=== PATIENT | female | born 1945 | race Hispanic/Latino ===

== ENCOUNTER 2016-12-31 09:53 | Emergency (ER) | payer OTHER, MEDICARE ==
[~2016-12-31] VITALS: Ht 139.7 cm; Wt 43.1 kg
--- NOTE | 2016-12-31 10:52 | ED SKIN/ALLERGY COMPLAINT ---
History of Present Illness General Chief Complaint: General Adult Stated Complaint: " i have alump on my neckxs 2months" Source: patient, family, old records Exam Limitations: no limitations Vital Signs & Intake/Output Vital Signs & Intake/Output Vital Signs Date Time Temp Pulse Resp B/P Pulse O2 O2 Flow FiO2 Ox Delivery Rate 12/31 1206 98.0 78 20 132/76 99 Room Air 12/31 1000 97.8 94 20 120/75 98 Room Air Allergies Coded Allergies: Penicillins (RASH 12/31/16) Triage Note: PT C/O "LUMP" ON COLLAR BONE X 1 MONTH. DENIES PAIN. SHE SAW HER PMD WHO TOLD HER IT WAS A BONE BUT SHE STATES "I DON'T TRUST THAT" Triage Nurses Notes Reviewed? yes Onset: 1-2 months Duration: week(s):, constant, continues in ED Timing: recent history Severity: mild Location: right lower neck Possible Factors: no cause identified No Modifying Factors: none LMP (ages 10-50): post menopausal : No Patient currently breastfeeds: No HPI: 1-2 months prior to admission patient complains of increasing painless lump on the right side of her lower neck. She denies fever chills nausea vomiting diarrhea abdominal pain chest pain shortness of breath dysuria rash bleeding. Past History Travel History Traveled to [place] past 21 day No Medical History Any Pertinent Medical History? see below for history Cardiovascular: hypertension Respiratory: asthma Endocrine: diabetes Surgical History Surgical History: non-contributory Psychosocial History What is your primary language Welsh Tobacco Use: Current Not Daily Daily Tobacco Use Amount/Type: =< 4 Cigarettes daily ETOH Use: denies use Illicit Drug Use: denies illicit drug use Family History Hx Contributory? No Review of Systems Review of Systems Constitutional: Reports: no symptoms. EENTM: Reports: no symptoms. Respiratory: Reports: no symptoms. Cardiovascular: Reports: no symptoms. GI: Reports: no symptoms. Genitourinary: Reports: no symptoms. Musculoskeletal: Reports: no symptoms. Skin: Reports: see HPI. Neurological/Psychological: Reports: no symptoms. Hematologic/Endocrine: Reports: no symptoms. Immunologic/Allergic: Reports: no symptoms. All Other Systems: Reviewed and Negative Physical Exam Physical Exam General Appearance: well developed/nourished, alert, awake, anxious, comfortable Head: atraumatic, normal appearance Eyes: Bilateral: normal appearance, PERRL, EOMI. Ears, Nose, Throat: normal pharynx, normal ENT inspection, hearing grossly normal Neck: supple, full range of motion, no midline tenderness, soft tissue mass 1.25 cm R lower ant neck Respiratory: normal breath sounds Cardiovascular: regular rate/rhythm Peripheral Pulses: 4+ carotid (R), 4+ carotid (L) Gastrointestinal: normal bowel sounds, soft, non-tender, no organomegaly Back: normal inspection, normal range of motion, no vertebral tenderness Extremities: normal inspection, normal capillary refill, normal range of motion, no edema Neurologic/Psych: awake, alert, oriented x 3, normal mood/affect Reflexes: 2+: bicep (R), bicep (L). Skin: intact, normal color Skin Problem Location: neck Skin Problem Character: swelling Lymphatic: no anterior cervical mechelle Progress Differential Diagnosis: abscess/cellulitis Plan of Care: Orders Procedure Date/time Status US-SOFT TISSUES OF HEAD & NECK 12/31 1010 Active Diagnostic Imaging: Viewed by Me: Ultrasound. Discussed w/RAD: Ultrasound. Radiology Impression: Ill-defined heterogeneous avascular mass correlates to the area of palpable concern interposed between the jugular notch of the manubrium and the right clavicular head. On physical exam, the mass is quite firm and nontender. The finding is nonspecific, however I suspect this to be related to the musculoskeletal structures in this region such as the first costal cartilage. The asymmetry between right and left in combination with growth over the last 4 months is concerning for an underlying neoplastic process. Further evaluation with MRI is recommended. Departure Departure Time of Disposition: 1211 Disposition: HOME OR SELF CARE Condition: Stable Clinical Impression Primary Impression: Abnormality of soft tissue on examination Referrals: ASAEL PETERS,IRA Street (PCP/Family) ROYER PETERS,NELI Fraser Call for surgical follow up Departure Forms: Customer Survey General Discharge Information
--- NOTE | 2016-12-31 11:51 | ULTRASOUND REPORT ---
EXAMINATION: US THYROID CLINICAL INFORMATION: Palpable lump of the right lower neck at the level of the superior manubrium/right clavicular head. The patient reports the lump to have developed over the last 4 months. COMPARISON: None TECHNIQUE: Linear transducer grayscale and color Doppler examination with attention to the region of concern in the lower right neck as indicated by the patient. FINDINGS: In the area of concern of the right anterior lower neck lateral to the jugular notch at the level of the right clavicular head is an ill-defined heterogeneous avascular mass measuring approximately 1.6 x 1.9 x 1.4 cm. There is a similar appearing but smaller structure on the contralateral side, however there is marked asymmetry in the size. IMPRESSION: Ill-defined heterogeneous avascular mass correlates to the area of palpable concern interposed between the jugular notch of the manubrium and the right clavicular head. On physical exam, the mass is quite firm and nontender. The finding is nonspecific, however I suspect this to be related to the musculoskeletal structures in this region such as the first costal cartilage. The asymmetry between right and left in combination with growth over the last 4 months is concerning for an underlying neoplastic process. Further evaluation with MRI is recommended.
[2016-12-31 12:06] VITALS: BP 132/76
== END 2016-12-31 12:28 ==
LOC: ERH 09:53
DX: R22.1 Localized swelling, mass and lump, neck (principal)

== ENCOUNTER 2017-01-03 06:12 | Emergency (ER) | payer OTHER, MEDICARE ==
[2017-01-03] MEDS ORDERED: DICYCLOMINE HCL20 M1 PO (06:14)
[2017-01-03] MEDS ORDERED: PREDNISONE5 M2 PO (06:15)
[2017-01-03] MEDS ORDERED: AMLODIPINE BESY10 M1 PO (06:15)
[2017-01-03] MEDS ORDERED: STROVITE ONE C1 EACH PO (06:15)
[2017-01-03] MEDS ORDERED: METFORMIN HCL500 M2 PO (06:15)
[2017-01-03] MEDS ORDERED: NITROGLYCERIN0.4 M1 SL (06:16)
[2017-01-03 06:32] LABS: ABSOLUTE BASOPHIL COUNT 0 /CUMM (0.0-0.2); ABSOLUTE EOSINOPHIL COUNT 0.2 /CUMM (0.0-0.7); ABSOLUTE GRANULOCYTE CT 3.6 /CUMM (1.4-6.5); ABSOLUTE LYMPH COUNT 3.1 /CUMM (1.2-3.4); ABSOLUTE MONOCYTE COUNT 0.7 /CUMM (0.10-0.60); BASOPHIL % 0.4 % (0.0-2.0); EOSINOPHIL % 2.1 % (0-5); GRANULOCYTE % 47.8 % (42.2-75.2); HEMATOCRIT 37.9 % (37-47); MEAN CORPUSCULAR HGB 30.8 PG (27.0-31.0); MEAN CORPUSCULAR HGB CONC 32.6 G/DL (33.0-37.0); MEAN CORPUSCULAR VOLUME 94.3 FL (81.0-99.0); MEAN PLATELET VOLUME 7.3 FL (7.4-10.4); PLATELET COUNT 316 /CUMM (130-400); RBC DISTRIBUTION WIDTH 16.3 % (11.5-14.5); RED BLOOD CELL CT 4.02 /CUMM (4.20-5.40); WHITE BLOOD CELL COUNT 7.6 /CUMM (4.8-10.8)
[2017-01-03 06:39] LABS: PT 10.8 SEC (9.4-12.5)
--- NOTE | 2017-01-03 07:12 | ED CARDIAC/CP/PALPITATIONS ---
History of Present Illness General Chief Complaint: Chest Pain Stated Complaint: BIBA CP Source: patient, family, old records Exam Limitations: no limitations Vital Signs & Intake/Output Vital Signs & Intake/Output Vital Signs Date Time Temp Pulse Resp B/P B/P Pulse O2 O2 Flow FiO2 Mean Ox Delivery Rate 01/03 1024 85 18 114/78 98 Room Air 01/03 0618 97.1 89 18 107/77 99 Room Air Allergies Coded Allergies: Penicillins (RASH 01/03/17) Reconcile Medications Amlodipine Besylate 10 MG TABLET 1 TAB PO DAILY HTN (Reported) Dicyclomine HCl 20 MG TABLET 1 TAB PO (Reported) Metformin HCl (Metformin HCl ER) 500 MG TAB.ER.24 1 TAB PO DAILY DM (Reported ) Mv,Min #10/FA/D3/Alip Acid/Lut (Strovite One Caplet) 1 MG-1,000 UNIT-15 MG-5 MG TABLET 1 TAB PO DAILY SUPPLEMENT (Reported) Nitroglycerin 0.4 MG TAB.SUBL 1 TAB SL AD (Reported) 1st sign of attack; may repeat every 5 minutes until relief; if pain persists after 3 tablets in 15 minutes, prompt medical att Nitroglycerin (Nitrostat) 0.4 MG TAB.SUBL 1 TAB SL AD PRN CHEST PAIN 1st sign of attack; may repeat every 5 minutes until relief; if pain persists after 3 tablets in 15 minutes, prompt medical att Nitroglycerin (Nitrostat) 0.4 MG TAB.SUBL 1 TAB SL D CHEST PAIN Prednisone 5 MG TAB.DS.PK 1 TAB PO DAILY (Reported) Triage Note: TRIAGE: PATIENT TO ER FROM HOME REPORTS SUDDEN ONSET SHARP CP WOKE HER FROM SLEEP AT 0300. HX [place] X2. PATIENT REPORTS CURRENT PAIN 06/24. 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 REPORTS QUIT SMOKING 1 WEEK AGO. PREHOSP IV EST #18 LEFT AC. REPORTS "RAN OUT OF NITRO SO DIDN'T TAKE ANY." GIVEN NITRO X1 AND 4 BABY ASPIRINS IN FIELD W/ NO RELIEF. Triage Nurses Notes Reviewed? yes Onset: Abrupt Duration: hour(s): (2) Timing: multiple episodes today Location: central Activities at Onset: sleep Nitro Today/Relief: no nitro taken today Aspirin Today: no aspirin today HPI: 71 year old female with history of CAD, HTN, high cholesterol who presents via EMS from home for chief complaint of substernal chest pain which woke her up from sleep. Reports 10/10 pain. She was given aspirin and nitroglycerin with some relief. She states she ran out of her nitro 3 weeks ago which she takes once every morning. No cough, fever, sob, chills. Associated left arm pain and heaviness. Now arm pain is resolved. Past History Travel History Traveled to [place] past 21 day No Medical History Any Pertinent Medical History? 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 No Review of Systems Review of Systems Constitutional: Denies: chills, fever. EENTM: Reports: no symptoms. Respiratory: Denies: hemoptysis, short of breath. Cardiovascular: Reports: chest pain. Denies: palpitations, peripheral edema. GI: Reports: no symptoms. Genitourinary: Denies: discharge, dysuria, frequency. Musculoskeletal: Reports: no symptoms. Skin: Reports: no symptoms. Neurological/Psychological: Reports: no symptoms. Hematologic/Endocrine: Denies: bruising, bleeding, polyuria, polydipsia. Immunologic/Allergic: Denies: splenectomy. All Other Systems: Reviewed and Negative Physical Exam Physical Exam General Appearance: alert, awake, anxious, mild distress, thin Head: atraumatic, normal appearance Eyes: Bilateral: normal appearance, PERRL, EOMI. Ears, Nose, Throat: normal pharynx, normal ENT inspection, hearing grossly normal Neck: normal inspection, supple, JVD Respiratory: normal breath sounds, chest non-tender, no respiratory distress Cardiovascular: regular rate/rhythm Peripheral Pulses: 2+ radial (R), 2+ radial (L) Gastrointestinal: normal bowel sounds, soft, non-tender Extremities: normal inspection, normal capillary refill, normal range of motion Neurologic/Psych: no motor/sensory deficits, alert, oriented x 3 Skin: intact, normal color, warm/dry Core Measures ACS in differential dx? Yes ASA ordered for poss ACS? PRIOR TO ARRIVAL Severe Sepsis Present: No Septic Shock Present: No Progress Differential Diagnosis: AMI, aortic dissection, costochondritis, musculoskeletal pain, myocarditis, pericarditis, pneumonia, pneumothorax, pulmonary embolism, unstable angina Plan of Care: Orders Procedure Date/time Status Consistent Carbohydrate 1 01/03 B Active TROPONIN LEVEL 01/03 1020 Complete EKG 01/03 1020 Active Add-on Test (ER Only) 01/03 0705 Active PROTHROMBIN TIME 01/03 06 Complete COMPREHENSIVE METABOLIC PANEL 01/03 06 Complete CBC WITHOUT DIFFERENTIAL 01/03 625 Complete TROPONIN LEVEL 01/03 06 Complete EKG 01/03 0618 Active Laboratory Tests 01/03/17 1022: Troponin I < 0.01 01/03/17 06: Anion Gap 14, Estimated GFR > 60, BUN/Creatinine Ratio 21.4, Glucose 92, Calcium 9.3, Total Bilirubin 0.4, AST 33, ALT 31, Alkaline Phosphatase 138 H, Troponin I < 0.01, Total Protein 6.5, Albumin 3.7, Globulin 2.8, Albumin/Globulin Ratio 1.3, PT 10.8, INR 1.03, CBC w Diff NO MAN DIFF REQ, RBC 4.02 L, MCV 94.3, MCH 30.8, RDW 16.3 H, MPV 7.3 L, Gran % 47.8, Lymphocytes % 40.7, Monocytes % 9.0, Eosinophils % 2.1, Basophils % 0.4, Absolute Granulocytes 3.6, Absolute Lymphocytes 3.1, Absolute Monocytes 0.7 H, Absolute Eosinophils 0.2, Absolute Basophils 0, PUBS MCHC 32.6 L EKG, TELE MONITOR, LABS. CXR ORDERED. ASPIRIN AND NITROGLYCERIN GIVEN IN THE FIELD. INITIAL TROPONIN NEGATIVE. PAIN FREE AFTER NITRO IN THE FIELD. WILL STAY FOR REPEAT TROPONIN/EKG. REPEAT TROPONIN X 2 NEGATIVE. NO RECURRENT SYMPTOMS IN THE ED. PRESCRIPTION FOR NITROGLYCERIN GIVEN. WILL FOLLOW UP WITH SENIOR UI UX DESIGNER AT [facility]. (PABLO PETERS,ONESIMO) Diagnostic Imaging: Viewed by Me: Radiology Read. Discussed w/RAD: Radiology Read. CXR Impression: PATIENT: NICO SIMMONS PRESENT AGE: 71 PATIENT ACCOUNT NO: [id number] : 43 LOCATION: [facility] ORDERING PHYSICIAN: NOE TIERNEY MD SERVICE DATE: 01/03/17 EXAM TYPE: RAD - XRY-PORTABLE CHEST XRAY EXAMINATION: XR PORTABLE CHEST CLINICAL INFORMATION: Chest pain. COMPARISON: No relevant prior imaging available. TECHNIQUE: Portable AP view of the chest was obtained. FINDINGS: Cardiac leads overlie the chest. There is no focal consolidative disease, pleural effusion, or pneumothorax. The cardiac silhouette and upper mediastinal contours are normal. 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 Visualized soft tissues are unremarkable. IMPRESSION: Unremarkable chest radiograph. No consolidative disease or effusion. DICTATED BY: LETTY EAST MD DATE/TIME DICTATED:01/03/17707 NET APPLICATION ARCHITECT:NOLAN DATE/ TIME TRANSCRIBED:01/03/17707 CONFIDENTIAL, DO NOT COPY WITHOUT APPROPRIATE AUTHORIZATION. <Electronically signed in Other Vendor System> SIGNED BY: LETTY EAST MD 01/03/17 07 Initial ED EKG: NSR, LAD Repeat EKG: changed Rhythm Strip: normal sinus rhythm Departure Departure Time of Disposition: 1127 Disposition: HOME OR SELF CARE Condition: Stable Clinical Impression Primary Impression: Unstable angina Referrals: ASAEL PETERS,IRA Street (PCP/Family) Additional Instructions: TAKE THE NITRO DIRECTED AND FOLLOW UP WITH YOUR SENIOR UI UX DESIGNER IN THE OFFICE. RETURN NEEDED. Departure Forms: Customer Survey General Discharge Information Prescriptions: Current Visit Scripts Nitroglycerin (Nitrostat) 1 TAB SL AD PRN CHEST PAIN #40 TAB 1st sign of attack; may repeat every 5 minutes until relief; if pain persists after 3 tablets in 15 minutes, prompt medical att Nitroglycerin (Nitrostat) 1 TAB SL D #30 TAB Critical Care Note Critical Care Note Critical Care Time: non-applicable
[2017-01-03] MEDS ORDERED: NITROSTAT0.4 M1 SL ×2 (11:31)
[2017-01-03 11:46] VITALS: BP 110/74
== END 2017-01-03 11:47 ==
LOC: ERH 06:12
PROVIDERS: Emergency Medicine
DX: I20.0 Unstable angina (principal); R07.89 Other chest pain
CPT/HCPCS: 93005; 93010

== ENCOUNTER 2017-03-13 23:57 | Inpatient (IN) | payer OTHER, MEDICARE ==
[~2017-03-13] VITALS: Ht 139.7 cm; Wt 38.6 kg
[~2017-03-13 23:57] MED LIST: AMLODIPINE BESY10 M1 PO; DICYCLOMINE HCL20 M1 PO; METFORMIN HCL500 M2 PO; NITROGLYCERIN0.4 M1 SL; NITROSTAT0.4 M1 SL; PREDNISONE5 M2 PO; STROVITE ONE C1 EACH PO
--- NOTE | 2017-03-14 00:05 | NUR ---
PT BIBA FROM HOME WITH C/C OF LEFT CHEST PAIN 9/ WHICH STARTED AT AROUND 1800 YESTERDAY GETTING WORSE. REPORTS LEFT C/P CONSTANT RADIATING TO THE CENTER. PT HAS HISTORY [place] X 2 WITH STENTS, DM, HTN. C/O DIFFICULTY BREATHING. NO DIAPHORESIS. FINGER STICK ON ROUTE WAS 130. ASPIRIN 324MG PO GIVEN ON ROUTE. PT REPORTED TAKEN 1 NITRO SL AROUND 1800 WHICH WAS INEFFECTIVE. 12 LEAD EKG ON ROUTE WAS SINUS RHYTHM. AWAITING EVAL.
--- NOTE | 2017-03-14 00:18 | ED CARDIAC/CP/PALPITATIONS ---
History of Present Illness General Chief Complaint: Chest Pain Stated Complaint: BIBA, CHEST PAIN Source: patient, family, old records, EMS Exam Limitations: no limitations Vital Signs & Intake/Output Vital Signs & Intake/Output Vital Signs Date Time Temp Pulse Resp B/P B/P Pulse O2 O2 Flow FiO2 Mean Ox Delivery Rate 03/14 0124 70 18 126/71 97 Room Air 03/14 0110 97.0 75 18 114/76 97 Room Air 03/14 0051 78 18 105/58 96 Room Air 03/14 0042 70 18 111/70 03/14 0038 76 18 111/70 97 Room Air 03/14 0033 85 18 118/70 95 Room Air 03/14 0027 105 18 107/67 95 Room Air 03/14 0003 96.6 88 18 152/78 98 Room Air Allergies Coded Allergies: Penicillins (RASH 01/03/17) Reconcile Medications Amlodipine Besylate 10 MG TABLET 1 TAB PO DAILY HTN (Reported) Dicyclomine HCl 20 MG TABLET 1 TAB PO (Reported) Metformin HCl (Metformin HCl ER) 500 MG TAB.ER.24 1 TAB PO DAILY DM (Reported ) Mv,Min #10/FA/D3/Alip Acid/Lut (Strovite One Caplet) 1 MG-1,000 UNIT-15 MG-5 MG TABLET 1 TAB PO DAILY SUPPLEMENT (Reported) Nitroglycerin 0.4 MG TAB.SUBL 1 TAB SL AD (Reported) 1st sign of attack; may repeat every 5 minutes until relief; if pain persists after 3 tablets in 15 minutes, prompt medical att Nitroglycerin (Nitrostat) 0.4 MG TAB.SUBL 1 TAB SL AD PRN CHEST PAIN 1st sign of attack; may repeat every 5 minutes until relief; if pain persists after 3 tablets in 15 minutes, prompt medical att Nitroglycerin (Nitrostat) 0.4 MG TAB.SUBL 1 TAB SL D CHEST PAIN Prednisone 5 MG TAB.DS.PK 1 TAB PO DAILY (Reported) Core Measure Meds Pre-Hospital aspirin Triage Note: see nurses notes Triage Nurses Notes Reviewed? yes Onset: Evening Duration: hour(s):, constant, continues in ED, getting worse Timing: recent history Quality/Severity: moderate, severe, sharp Location: substernal Radiation: no radiation Activities at Onset: rest Prior Chest Pain/Card Workup: angina, cardiac cath, echocardiography, heart attack Nitro Today/Relief: 0.4 mg x 1, 0.4 mg x 3, provided by ED, provided at home, no relief Aspirin Today: 325 mg x 1, provided by EMS Associated Symptoms: dizziness, shortness of breath, weakness LMP (ages 10-50): post menopausal : No Patient currently breastfeeds: No HPI: 6 hours prior to admission patient complains of constant left-sided sharp moderate to severe chest pain associated with dizziness shortness of breath. She took one nitroglycerin at the onset of pain but had no more. She denies fever chills vomiting diarrhea abdominal pain headache dysuria rash bleeding. Past History Travel History Traveled to [place] past 21 day No Medical History Any Pertinent Medical History? 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 No Review of Systems Review of Systems Constitutional: Reports: see HPI, malaise. EENTM: Reports: no symptoms. Respiratory: Reports: see HPI, short of breath. Cardiovascular: Reports: see HPI, chest pain. GI: Reports: no symptoms. Genitourinary: Reports: no symptoms. Musculoskeletal: Reports: no symptoms. Skin: Reports: no symptoms. Neurological/Psychological: Reports: no symptoms. Hematologic/Endocrine: Reports: no symptoms. Immunologic/Allergic: Reports: no symptoms. All Other Systems: Reviewed and Negative Physical Exam Physical Exam General Appearance: well developed/nourished, alert, awake, anxious, moderate distress Head: atraumatic, normal appearance Eyes: Bilateral: normal appearance, PERRL, EOMI. Ears, Nose, Throat: normal pharynx, normal ENT inspection Neck: normal inspection, supple, full range of motion, no midline tenderness Respiratory: normal breath sounds, chest non-tender, no respiratory distress, quiet respiration, lungs clear Cardiovascular: regular rate/rhythm, normal peripheral pulses, norml femoral pulses equa Peripheral Pulses: 4+ carotid (R), 4+ carotid (L), 2+ radial (R), 2+ radial (L) Gastrointestinal: normal bowel sounds, soft, non-tender, no organomegaly Back: normal inspection, normal range of motion, no vertebral tenderness Extremities: normal inspection, normal capillary refill, normal range of motion, no edema Neurologic/Psych: no motor/sensory deficits, awake, alert, oriented x 3, normal gait, 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 Skin: intact, normal color, warm/dry Lymphatic: no anterior cervical mechelle Core Measures ACS in differential dx? Yes ASA ordered for poss ACS? Yes-ordered Severe Sepsis Present: No Septic Shock Present: No Progress Differential Diagnosis: AMI, hyperkalemia, hypovolemia, pneumonia Plan of Care: Orders Procedure Date/time Status Patient Data 03/14 238 Active Admit to inpatient 03/14 234 Active Add-on Test (ER Only) 03/14 213 Active PARTIAL THROMBOPLASTIN TIME 03/14 213 Complete PROTHROMBIN TIME 03/14 021 Complete TROPONIN LEVEL 03/14 15 Complete MAGNESIUM 03/14 001 Complete COMPREHENSIVE METABOLIC PANEL 03/14 0015 Complete CBC WITHOUT DIFFERENTIAL 03/14 001 Complete B-TYPE NATRIURETIC PEP (BNP) 03/14 001 Complete EKG 03/14 0011 Active Current Medications Sig/Melani Start time Last Medication Dose Stop Time Status Admin Heparin Sodium 4,000 UNIT ONCE ONE 03/14 0145 CAN (Porcine) 03/14 0146 (Heparin Bolus) Heparin Sodium 25,000 UNIT Q24H 03/14 0145 AC (Porcine) (Heparin) Sodium Chloride 500 ML Laboratory Tests 03/14/17 0024: Anion Gap 10, Estimated GFR > 60, BUN/Creatinine Ratio 18.6, Glucose 93, Calcium 9.8, Magnesium 2.1, Total Bilirubin 0.4, AST 219 H, ALT 102 H, Alkaline Phosphatase 218 H, Troponin I < 0.01, [id number] Pept 53.8, Total Protein 6.5, Albumin 4.0, Globulin 2.5, Albumin/Globulin Ratio 1.6, PT 11.1, INR 1.06, APTT 37, CBC w Diff NO MAN DIFF REQ, RBC 4.23, MCV 91.6, MCH 30.4, RDW 16.6 H, MPV 7.5, Gran % 47.4, Lymphocytes % 43.0, Monocytes % 7.1, Eosinophils % 2.4, Basophils % 0.1, Absolute Granulocytes 2.8, Absolute Lymphocytes 2.5, Absolute Monocytes 0.4, Absolute Eosinophils 0.1, Absolute Basophils 0, PUBS MCHC 33.2 Diagnostic Imaging: Viewed by Me: Radiology Read. Discussed w/RAD: Radiology Read. CXR Impression: Cardiac leads overlie the chest. There is no focal consolidative disease, pleural effusion, or pneumothorax. The cardiac silhouette and upper mediastinal contours are normal. 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 There is severe degenerative arthrosis of the left shoulder with superior subluxation of the humeral head and severe degenerative narrowing of the acromiohumeral interval suggesting chronic changes of a rotator cuff injury. No acute osseous finding. Surgical clips within the right upper quadrant are noted. IMPRESSION: No consolidative disease or effusion. Initial ED EKG: normal axis, normal intervals, normal p-waves, normal QRS complex, normal sinus rhythm, nonspecific ST T wave chg Prior EKG: unchanged Rhythm Strip: normal sinus rhythm Comments: No relief from ASA lopressor nitrox3 morphine. IV nitro and heparin started Departure Departure Disposition: STILL A PATIENT Condition: Stable Clinical Impression Primary Impression: Unstable angina Referrals: ASAEL PETERS,IRA Street (PCP/Family) Departure Forms: Customer Survey General Discharge Information Admission Note Spoke With: MELANIE PETERS,CALI Mat[place] Documentation of Exam: Documentation of any treatments & extenuating circumstances including Concerns Regarding Discharge (functional status, medication knowledge or non-compliance, living conditions, etc.) that warrant an admission rather than observation: ICU monitoring IV nitroglycerin IV analgesia serial lab exam medication adjustment cardiology evaluation continuing care discharge planning. Critical Care Note Critical Care Note Critical Care Time: 30-74 min (45)
--- NOTE | 2017-03-14 00:20 | NUR ---
EKG DONE AND SHOWED TO MD. NITRO SL GIVEN ORDERED.
--- NOTE | 2017-03-14 00:30 | NUR ---
CHEST PAIN DOWN TO 8/10. MEDICATED WITH NITRO LS SECOND ORDERED.
[2017-03-14 00:33] LABS: ABSOLUTE BASOPHIL COUNT 0 /CUMM (0.0-0.2); ABSOLUTE EOSINOPHIL COUNT 0.1 /CUMM (0.0-0.7); ABSOLUTE GRANULOCYTE CT 2.8 /CUMM (1.4-6.5); ABSOLUTE LYMPH COUNT 2.5 /CUMM (1.2-3.4); ABSOLUTE MONOCYTE COUNT 0.4 /CUMM (0.10-0.60); BASOPHIL % 0.1 % (0.0-2.0); EOSINOPHIL % 2.4 % (0-5); GRANULOCYTE % 47.4 % (42.2-75.2); HEMATOCRIT 38.8 % (37-47); MEAN CORPUSCULAR HGB 30.4 PG (27.0-31.0); MEAN CORPUSCULAR HGB CONC 33.2 G/DL (33.0-37.0); MEAN CORPUSCULAR VOLUME 91.6 FL (81.0-99.0); MEAN PLATELET VOLUME 7.5 FL (7.4-10.4); PLATELET COUNT 268 /CUMM (130-400); RBC DISTRIBUTION WIDTH 16.6 % (11.5-14.5); RED BLOOD CELL CT 4.23 /CUMM (4.20-5.40); WHITE BLOOD CELL COUNT 5.9 /CUMM (4.8-10.8)
--- NOTE | 2017-03-14 00:42 | NUR ---
PT MEDICATED WITH LOPRESSOR PER EMAR. BP 111/70 AND HEART 70 ON MONITOR.
--- NOTE | 2017-03-14 00:48 | RADIOLOGY REPORT ---
EXAMINATION: XR PORTABLE CHEST CLINICAL INFORMATION: Chest pain. COMPARISON: Chest radiograph 01/03/2017. TECHNIQUE: Portable AP semiupright view of the chest was obtained. FINDINGS: Cardiac leads overlie the chest. There is no focal consolidative disease, pleural effusion, or pneumothorax. The cardiac silhouette and upper mediastinal contours are normal. 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 There is severe degenerative arthrosis of the left shoulder with superior subluxation of the humeral head and severe degenerative narrowing of the acromiohumeral interval suggesting chronic changes of a rotator cuff injury. No acute osseous finding. Surgical clips within the right upper quadrant are noted. IMPRESSION: No consolidative disease or effusion.
--- NOTE | 2017-03-14 01:00 | NUR ---
PT REPORTS CHEST PAIN COMES AND GOES. C/O PAIN 05/25. NITRO SL THIRD DOSE REFUSED. MEDICATED WITH MORPHINE IVP ORDERED. VITAL SIGNS STABLE PRIOR TO MED ADMINISTRATION.
--- NOTE | 2017-03-14 01:24 | NUR ---
PT STATES THAT CP IS BEGINNING TO SUBSIDE AFTER THE MORPHINE.
--- NOTE | 2017-03-14 01:36 | NUR ---
DR TIERNEY AT BEDSIDE FOR RE-EVAL.
--- NOTE | 2017-03-14 01:38 | NUR ---
PT'S DAUGHTER MICA CAN BE CONTACTED AT [phone].
--- NOTE | 2017-03-14 01:51 | NUR ---
PHARMACY CALLED FOR NITRO DRIP.
--- NOTE | 2017-03-14 02:10 | NUR ---
PT REPORTS CHEST PAIN COMES AND GOES LIKE PINS. C/O PAIN 8/10 AT THIS TIME. MEDICATED WITH MORPHINE IVP ORDERED. VITAL SIGNS STABLE.
[2017-03-14 02:31] LABS: PT 11.1 SEC (9.4-12.5); PTT 37 SEC (25-37)
--- NOTE | 2017-03-14 02:33 | NUR ---
TAKEN TO BATHROOM VIA WHEEL CHAIR TO VOID.
--- NOTE | 2017-03-14 02:47 | NUR ---
HEPARIN DRIP INITIATED PER EMAR. NITRO DRIP INITIATED PER EMAR. PAIN 8/10. WILL CONTINUE TO MONITOR.
--- NOTE | 2017-03-14 02:52 | NUR ---
PT STATES CP IS NOW 03/24. WILL CONTINUE TO MONITOR.
--- NOTE | 2017-03-14 02:57 | NUR ---
PT STATES PAIN REMAINS 03/24. VSS. WILL CONTINUE TO MONITOR.
--- NOTE | 2017-03-14 03:24 | NUR ---
PT STATES THAT CHEST PAIN IS INCREASING, NOW 06/24. NITRO DRIP INCREASED 5MCG PER PROTOCOL. VSS. WILL CONTINUE TO MONITOR.
--- NOTE | 2017-03-14 03:26 | History & Physical ---
EVARISTO PETERS,MANUEL 03/14/17 0317: General Information and [facility] MD Statement: I have seen and personally examined NICO SIMMONS and documented this H&P. The patient is a 71 year old F who presented with a patient stated chief complaint of [cp]. Source of Information: patient Exam Limitations: no limitations History of Present Illness: This is a 70-year-old female past medical history significant for NH 2 in 1992 and [address] and [address], asthma, hypertension, diabetes, who comes in for chief complaint of chest pain. Patient states that 6 hours prior to admission she felt left-sided moderate to severe chest pain. During interview, patient stated she had 10 out of 10 pain. She took one nitroglycerin tablet at home and stated that it helped her for about 20-30 minutes. However, the pain returned and she did not have any more nitroglycerin at home so she decided to come to ED. Patient states also took one Plavix tab at home and found no change in her symptoms. Patient endorses headache prior to coming to hospital, but denies any dizziness. She has been having more frequent falls recently. She has had 3 falls in the last month, despite using a cane. She states that prior to each fall she has dizziness but no loss of consciousness, seizure, loss of bladder/ bowel movement BRBPR, or melena. Patient follows with a female executive office manager in [place] on [facility]. She does not know any further details. Apparently, she was told to stop taking Plavix this September. She has had recent surgery on November 22 in her r.knee and on October 18 her right shoulder. She continues to smoke 1 cigarette a day. She has one pack per day history for 3 years. Patient denies any alcohol or drug abuse. Notably, patient has never been admitted to [facility] but she has been to our ED on 01/03/2017 she was seen here for unstable angina. Serial troponins were negative and she was discharged to follow-up with executive office manager. She usually follows up in [facility]. Allergies/Medications Allergies: Coded Allergies: Penicillins (RASH 01/03/17) Home Med list Amlodipine Besylate 10 MG TABLET 1 TAB PO DAILY HTN (Reported) Dicyclomine HCl 20 MG TABLET 1 TAB PO (Reported) Metformin HCl (Metformin HCl ER) 500 MG TAB.ER.24 1 TAB PO DAILY DM (Reported ) Mv,Min #10/FA/D3/Alip Acid/Lut (Strovite One Caplet) 1 MG-1,000 UNIT-15 MG-5 MG TABLET 1 TAB PO DAILY SUPPLEMENT (Reported) Nitroglycerin 0.4 MG TAB.SUBL 1 TAB SL AD (Reported) 1st sign of attack; may repeat every 5 minutes until relief; if pain persists after 3 tablets in 15 minutes, prompt medical att Nitroglycerin (Nitrostat) 0.4 MG TAB.SUBL 1 TAB SL AD PRN CHEST PAIN 1st sign of attack; may repeat every 5 minutes until relief; if pain persists after 3 tablets in 15 minutes, prompt medical att Nitroglycerin (Nitrostat) 0.4 MG TAB.SUBL 1 TAB SL D CHEST PAIN Prednisone 5 MG TAB.DS.PK 1 TAB PO DAILY (Reported) Compliance With Home Meds: UNKNOWN Past History Travel History Traveled to [place] past 21 day No Medical History Neurological: NONE EENT: NONE Cardiovascular: hypertension, NH X 2 Respiratory: asthma Gastrointestinal: NONE Hepatic: NONE Renal: NONE Musculoskeletal: NONE Psychiatric: NONE Endocrine: diabetes Blood Disorders: NONE Cancer(s): NONE VIDEO ENGINEER/Reproductive: NONE Surgical History Surgical History: non-contributory Past Family/Social History Psychosocial History ETOH Use: denies use Illicit Drug Use: denies illicit drug use Functional Ability ADLs Independent: dressing, eating, toileting, bathing. Ambulation: cane IADLs Independent: shopping, housework, finances, food prep, telephone, transportation , medication admin. Review of Systems Review of Systems Constitutional: Reports: see HPI. Exam & Diagnostic Data Last 24 Hrs of Vital Signs/I&O Vital Signs Date Time Temp Pulse Resp B/P B/P Pulse O2 O2 Flow FiO2 Mean Ox Delivery Rate 03/14 0415 72 105/64 97 Room Air 03/14 0359 96.5 71 18 107/57 98 Room Air 03/14 0334 77 106/64 97 Room Air 03/14 0324 74 108/61 97 Room Air 03/14 0319 70 112/61 98 Room Air 03/14 0254 65 18 118/65 98 Room Air 03/14 0124 70 18 126/71 97 Room Air 03/14 0110 97.0 75 18 114/76 97 Room Air 03/14 0051 78 18 105/58 96 Room Air 03/14 0042 70 18 111/70 06/30 0038 76 18 111/70 97 Room Air 03/14 0033 85 18 118/70 95 Room Air 03/14 0027 105 18 107/67 95 Room Air 03/14 0003 96.6 88 18 152/78 98 Room Air Intake & Output 03/14 0800 03/14 0000 03/13 1600 Intake Total Output Total Balance Patient 40.823 kg Weight Weight Reported by Patient Measurement Method Physical Exam General Appearance Alert, Oriented X3, Cooperative, No Acute Distress Skin No Rashes, No Breakdown HEENT Atraumatic, PERRLA, EOMI Cardiovascular Regular Rate, Normal S1, Normal S2, No Murmurs Lungs Normal Air Movement Abdomen Soft, No Tenderness, scar on RUQ Extremities RLE slightly more swollen the LLE from knee down. R. knee with bandage around knee. Knee with prosthesis and visible scar. Last 24 Hrs of Labs/Joseph: Laboratory Tests 03/14/17 0024: Anion Gap 10, Estimated GFR > 60, BUN/Creatinine Ratio 18.6, Glucose 93, Calcium 9.8, Magnesium 2.1, Total Bilirubin 0.4, AST 219 H, ALT 102 H, Alkaline Phosphatase 218 H, Troponin I < 0.01, Hrd-B-Xaqfsdngith Pept 53.8, Total Protein 6.5, Albumin 4.0, Globulin 2.5, Albumin/Globulin Ratio 1.6, PT 11.1, INR 1.06, APTT 37, CBC w Diff NO MAN DIFF REQ, RBC 4.23, MCV 91.6, MCH 30.4, RDW 16.6 H, MPV 7.5, Gran % 47.4, Lymphocytes % 43.0, Monocytes % 7.1, Eosinophils % 2.4, Basophils % 0.1, Absolute Granulocytes 2.8, Absolute Lymphocytes 2.5, Absolute Monocytes 0.4, Absolute Eosinophils 0.1, Absolute Basophils 0, PUBS MCHC 33.2 Assessment/Plan Assessment: This is a 71-year-old female past medical history significant for NH 2 status post stent, asthma, hypertension, diabetes, who comes in for chief complaint of unremitting chest pain. Patient found some relief with one nitroglycerin but chest pain quickly returned within 20 minutes. Given her significant cardiac history, comorbidities including hypertension and diabetes, smoking history, there is concern for acute coronary event in this patient. BRADLEY score of 3. In ED, patient was started on nitroglycerin drip and IV heparin. ED workup shows: Vitals: 96.6, 88, 18, 152/78, 98. CBC: White count 5.9, hemoglobin 12.9, hematocrit 30.8, platelet 260. BEP 142, 3.5, 104, 27, 13, 0.7 VASC to 19, ALT 102, alkaline phosphatase 218. Troponin 1 negative. EKG: Normal sinus rhythm with heart rate of 84. QTc 473. No appreciable ST or T-wave changes from previous EKG Chest x-ray shows no evidence of pna or vol overload. PLAN Unstable angina: Patient is currently having 10 out of 10 chest pressure at rest. The pain is amerliorated with nitroglycerin. Given patient's significant cardiac history but lack of EKG and troponin changes we will treat her as unstable angina. She got three nitro and morphine but pain returned so she was started on Nitro drip. * Continue heparin drip * Serial troponins and EKG * Continue nitroglycerin drip * Patient allergy to aspirin, will hold at this time * Patient took one Plavix today * NC O2 for sats greater than 92% * Monitor W/ telemetry * Obtain records from her executive office manager * Consider Statin on discharge after evaluating her elevated LFTs Transaminitis: AST 219, ALT 102, alkaline phosphatase 218during this visit. Previous LFTs within normal limits patient has a nonfocal abdominal exam. Unsure of etiology. She has remote hx of cholecystectomy * Right upper quadrant ultrasound * Liver function tests to be added to a.m. workup Diabetes: Chronic and stable * Hold metformin 500 * Regular insulin sliding scale * Fingerstick Hypertension: On admission patient's blood pressure 150/78. In hospital, she is getting IV nitroglycerin. * If she continues to be hypertensive, consider cardioselective beta wes as it is a first line in ACS. * She takes amlodipine 10 mg at home daily As Ranked By This Provider Problem List: 1. Unstable angina Core Measures/Miscellaneous Acute Coronary Syndrome ACS Diagnosis: Yes Comment ECHO UNKNOWN, ASA ALLERGY Cerebrovascular Accident CVA/TIA Diagnosis: No Congestive Heart Failure CHF Diagnosis: No VTE (View Protocol) VTE Risk Factors: [facility] illness [facility] prophylaxis d/t: No contraindications No VTE Pharm Prophylaxis d/t: No contraindications VTE Diagnosis: No VTE Type: NONE VTE Confirmed by (Test): NONE Sepsis (View Protocol) Severe Sepsis Present: No Septic Shock Septic Shock Present: No Miscellaneous Documentation Attending Case Discussed With: MELANIE PETERS,CALI Matute Primary Care Physician: IRA VYAS MD Patient sees these Specialists UNKNOWN Level of Patient Care: Critical Care (CRI) Consults Needed: Consulting Specialty: Cardiology JANINEMEFEMI 03/14/17 0547: Resident Review Statement Resident Statement: discussed with hospitality internship, agreed with hospitality internship, discussed with family Other Findings: Patient is 71 years old with PMH of DM, HTN, NH x 2 (1992 s/p stent insertion, and 2015) asthma came with chief complain of chest pain. Patient states that her chest pain started around 6.30 pm in the evening, she took a sublingual nitroglycerine and the pain went away for sometime but came right back. Patient states the pain was over her precordal region, 10/10 in intensity and pressure like. She said she has had chest pain in the past but never this bad. Of note, patient also took one 40 mg pill of plavix at home, which she was recently discontinued on in by her executive office manager at [facility] (patient can't recall the name). Patient reported that her chest pain was accompanied by a brief episode of lightheadedness and also Shortness of breath. Patient also reports that she has been having falls recently. She said her last fall was yesterday when her right knee gave out and she feel on the floor. Patient reports that she did not loose her consciousness during the fall. She lives with her daughter who came to see her immediatly. Patient does admit to feeling dizzy before her fall. She added that she has fallen once more in the past week and another time prior to that. She has not been worked up for her falls but things that it is possible due to her right knee which is healing since right knee arthroplasty in november 2016. Labs and Vitals as above. EKG: NSR, heart rate of 84. QTc 473. No appreciable ST or T-wave changes from previous EKG CXR- Clear Assessment and Plan In ER, Dr. Otero spoke with Dr. Navarro and patient was started on Heprin drip. Due to the reccurent nature of her CP that goes away with nitroglycerine, she was started on nitroglycerine drip. Will will admit her to ICU for closer monitoring. Serial troponins and EKG to r/o ACS Will obtain echocardiogram to access left ventricular function Blood pressure boderline on nitroglycerine drip, will hold her antihypertensives for now untill pressure improves. If the second set of troponins/EKG is negative, will stop nitroglycerine drip Case discussed with dr. Navarro Patient has elevated LFTs, etiology unknown, she had a cholecystectomy in 1985. Currently she does not have any abdominal pain, will get usg right upper quadrant to evalute liver morphology. Novolog SS, serial accu checks DVT ppx Heprin drip Patient is full code. CALI NAVARRO MD 03/14/17 0932: Attending MD Review Statement Attending Statement Attending MD Statement: examined this patient, discuss w/resident/PA/CERTIFIED OPHTHALMIC SURGICAL ASSISTANT, agreed w/resident/PA/CERTIFIED OPHTHALMIC SURGICAL ASSISTANT, discussed with family, reviewed EMR data (avail), discussed with nursing, discussed with case mgmt, reviewed images, amended to note Attending Assessment/Plan: 71 y-o-h-f w/ hx of long-standing tobacco use, asthma, HTN, HLD, DM, & CAD (s/p NH's x 2: 06/18/2007 s/p coronary stent to LAD and 01/03/2014 w/o need for PCI) who presented last night w/ c/o CP that began ~6.30 pm (03/13/2017) while she was watching TV, w/o relief following sl NTG 0.4 mg X1 taken several hours into the discomfort, clopidogrel taken an hour after that, or the 3 ASA 81 MG given en route to the ED. She recalls the pain radiating to her axillary region and then back up into her breast area and is being w/ associated shortness of breath, nausea, and lightheadedness. The pain was described as a "severe" (10/ 10), precordial, "pressure". She recalls being hospitalized in September 2016 for similar discomfort in [place] and being seen at that time by her attending executive office manager (Lizett Luque M.D.) and having a negative stress test. She additionally admitted to recent recurrent falls that have not been associated with any loss of consciousness, although she did admit to some dizziness prior to her fall last night that occurred after her right knee gave out. She is status post right knee arthroplasty in 11/22/2016. On physical examination she is a well-developed elderly female in no acute distress with nasal oxygen in place. Vital signs: See above. HEENT: Normocephalic, atraumatic, EOMI, moist mucous membranes. Neck: No JVD, no bruits. Lungs: Decreased breath sounds bilaterally and otherwise clear. Heart: S1, S2 with no murmur, gallop, rub appreciated. PMI fifth ICS at MCL. Abdomen: Soft, nontender, positive bowel sounds. Extremities: No edema. Studies: ECG (03/14/2017): Sinus rhythm, leftward axis, consider old IMI, abnormal precordial R wave progression consistent with old AMI. Minor changes when compared to previous tracing (01/03/2017). Impression: Prolonged episode of chest discomfort and this elderly female with a known history of coronary artery disease, as well as, risk equivalent and multiple risk factors for the same who fortunately has ruled out for any myocardial necrosis by her first 2 sets of cardiac enzymes with the third set pending. Fortunately, she is now chest discomfort free and had no acute electrocardiographic abnormalities on her initial electrocardiogram. Recommendations: * Transfer out of ICU to telemetry after third set of cardiac enzymes, if they remain negative. * Repeat ECG now. * Echocardiogram to assess for segmental wall motion abnormalities. * Can discontinue IV nitroglycerin. * Can discontinue IV heparin if third set of troponins is negative. * Alert Lizett Luque M.D. (her executive office manager), to her admission here and schedule outpatient follow-up. * Continue her beta wse and try and determine from her executive office manager why she is not on any antiplatelet therapy or ARACELI inhibitor/angiotensin receptor wes therapy. Suspect she is not on statin therapy secondary to her elevated LFTs, but this is not certain. * Evaluate abnormal LFTs and hold off on statin therapy. * DVT prophylaxis. Further recommendations will follow, Thank you.
--- NOTE | 2017-03-14 03:29 | NUR ---
HOUSESTAFF AT BEDSIDE FOR EVAL.
--- NOTE | 2017-03-14 03:33 | NUR ---
MORPHINE 2MG IVP ADMINISTERED FOR LEFT CHEST PAIN 10/10. VITAL SIGNS STABLE. HOUSE STAFF AT BEDSIDE EVALUATING THE PT.
--- NOTE | 2017-03-14 03:34 | NUR ---
PT STATES THAT CHEST PAIN REMAINS 10/10. NITRO DRIP INCREASED BY 5MCG PER PROTOCOL. BP 106/64, HEART RATE 77, O2 SAT 97% RA.
--- NOTE | 2017-03-14 03:40 | NUR ---
HOUSESTAFF REMAINS AT BEDSIDE.
--- NOTE | 2017-03-14 03:59 | NUR ---
PT RESTING COMFORTABLY. PT STATES PAIN IS NOW 9/10. BP 107/57, HEART RATE 71.
--- NOTE | 2017-03-14 04:15 | NUR ---
PT STATES PAIN IS DECREASING, NOW 03/24. PT CONTINUES TO REST COMFORTABLY ON STRETCHER.
--- NOTE | 2017-03-14 04:29 | NUR ---
PT CONTINUES TO COMPLAIN OF 7/10 CP. NITRO DRIP INCREASED BY 5MCG. BP 110/66, HR 80.
--- NOTE | 2017-03-14 04:48 | NUR ---
PT SOUNDLY SLEEPING. PT AWAKENED FROM SLEEP. PT STATES PAIN IS 6/10.
--- NOTE | 2017-03-14 05:03 | NUR ---
PT BECOMING AGITATED WITH FREQUENT MONITORING OF PAIN. PT INFORMED THAT WE ARE CLOSELY MONITORING HER DUE TO HER SYMPTOMS AND MEDICATIONS. PT STATES CHEST PAIN IS NOW 5/10. BP 103/59. HEART RATE 73.
--- NOTE | 2017-03-14 05:09 | NUR ---
PT'S ASSIGNMENT 106
--- NOTE | 2017-03-14 05:15 | NUR ---
REPORT GIVEN TO ALLAN LINDSAY ON ICU. ALLAN LINDSAY WILL CALL WHEN IT IS OKAY TO BRING PT TO THE FLOOR.
--- NOTE | 2017-03-14 05:21 | NUR ---
PT STATES PAIN IS 11/22. BP 105/62. HR 65. NITRO DRIP CURRENTLY RUNNING AT 25MCG.
--- NOTE | 2017-03-14 05:31 | NUR ---
PER RN PERITONEAL DIALYSIS ANGÉLICA, PT CAN BR BROUGHT UP TO THE FLOOR NOW. PT STATES PAIN IS /10. BP 104/61. HR 75.
--- NOTE | 2017-03-14 05:34 | NUR ---
NICO SIMMONS Nurse Note by: BREEZY MARIN I agree with the DOCUMENTATION SPEC findings/evaluation of this patient's condition. Entered by: BREEZY MARIN Date: 03/14/17 Time: 0535
--- NOTE | 2017-03-14 05:43 | NUR ---
BLOOD DRAWN AND SENT TO LAB. SST.
[2017-03-14 06:00] VITALS: BP 104/68
--- NOTE | 2017-03-14 07:28 | Cons- CRCU ---
General Information and HPI Allergies/Medications Allergies: Coded Allergies: Penicillins (RASH 01/03/17) Home Med List: Amlodipine Besylate 10 MG TABLET 1 TAB PO DAILY HTN (Reported) Dicyclomine HCl 20 MG TABLET 1 TAB PO (Reported) Metformin HCl (Metformin HCl ER) 500 MG TAB.ER.24 1 TAB PO DAILY DM (Reported ) Mv,Min #10/FA/D3/Alip Acid/Lut (Strovite One Caplet) 1 MG-1,000 UNIT-15 MG-5 MG TABLET 1 TAB PO DAILY SUPPLEMENT (Reported) Nitroglycerin 0.4 MG TAB.SUBL 1 TAB SL AD (Reported) 1st sign of attack; may repeat every 5 minutes until relief; if pain persists after 3 tablets in 15 minutes, prompt medical att Nitroglycerin (Nitrostat) 0.4 MG TAB.SUBL 1 TAB SL AD PRN CHEST PAIN 1st sign of attack; may repeat every 5 minutes until relief; if pain persists after 3 tablets in 15 minutes, prompt medical att Nitroglycerin (Nitrostat) 0.4 MG TAB.SUBL 1 TAB SL D CHEST PAIN Prednisone 5 MG TAB.DS.PK 1 TAB PO DAILY (Reported) Past History Travel History Traveled to [place] past 21 day No Medical History Blood Transfusion Hx: No Neurological: NONE EENT: CATARACT SX Cardiovascular: hypertension, NE X 2 Respiratory: asthma Gastrointestinal: NONE Hepatic: NONE Renal: NONE Musculoskeletal: NONE Psychiatric: NONE Endocrine: diabetes Blood Disorders: NONE Cancer(s): NONE 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 Home Smoking Status: Current Everyday Smoker ETOH Use: denies use Illicit Drug Use: denies illicit drug use Functional Ability ADLs Independent: dressing, eating, toileting, bathing. Ambulation: cane IADLs Independent: shopping, housework, finances, food prep, telephone, transportation , medication admin. Assessment/Plan Consult Acknowledgment - Thank you for your consult request.
--- NOTE | 2017-03-14 07:42 | NUR ---
@0600 PT ARRIVED TO FLOOR FROM ER, AWAKE AND ALERT MOVING ALL EXTREMETIES. HR SR ON MONITOR, SBP 100'S, PT ON NITROGLYCERIN DRIP @25MGC/MIN=15ML/HR C/O 2/10 CHEST PAIN, BUT BY END OF INTERVIEW PT COMPLAINING OF NO PAIN. HEPARIN DRIP INFUSING AT 8ML/HR+9.8 UNITS/KG/HR. SKIN INTACT NO EDEMA. ADMISSION INTERVIEW DONE, CALL HARVEY INSTRUCTIONS GIVEN PT VERBALIZED UNDERSTANDING.
[2017-03-14 08:00] VITALS: BP 120/62
[2017-03-14 09:52] LABS: ABSOLUTE BASOPHIL COUNT 0 /CUMM (0.0-0.2); ABSOLUTE EOSINOPHIL COUNT 0.1 /CUMM (0.0-0.7); ABSOLUTE GRANULOCYTE CT 1.8 /CUMM (1.4-6.5); ABSOLUTE LYMPH COUNT 2.3 /CUMM (1.2-3.4); ABSOLUTE MONOCYTE COUNT 0.3 /CUMM (0.10-0.60); BASOPHIL % 0.2 % (0.0-2.0); EOSINOPHIL % 2.8 % (0-5); GRANULOCYTE % 39.1 % (42.2-75.2); HEMATOCRIT 35.9 % (37-47); MEAN CORPUSCULAR HGB 30.8 PG (27.0-31.0); MEAN CORPUSCULAR HGB CONC 33.5 G/DL (33.0-37.0); MEAN CORPUSCULAR VOLUME 92.1 FL (81.0-99.0); MEAN PLATELET VOLUME 7.6 FL (7.4-10.4); PLATELET COUNT 259 /CUMM (130-400); RBC DISTRIBUTION WIDTH 16.5 % (11.5-14.5); WHITE BLOOD CELL COUNT 4.7 /CUMM (4.8-10.8)
--- NOTE | 2017-03-14 10:28 | PN- Housestaff ---
Assessment/Plan Consulting Request: Consulting Specialty: Cardiology
[2017-03-14 10:31] LABS: PT 11.7 SEC (9.4-12.5)
[2017-03-14 11:14] LABS: PTT 88 SEC (25-37)
--- NOTE | 2017-03-14 11:21 | ECHOCARDIOGRAM REPORT ---
NICO SIMMONS Age: 71 : 1945 Gender: F Exam Date: 03/14/2017 07:42 Exam Location: [facility] Ht (in): 55 Wt (lb): 90 BSA: 1.26 BP: 104 / 68 Ordering Physician: FEMI MEHTA MD Referring Physician: FEMI MEHTA MD Technologist: Mike Winston [facility] Room Number: 106 Indications: Chest Pain Rhythm: Sinus Technical Quality: Fair FINDINGS Left Ventricle Normal size left ventricle. Borderline concentric left ventricular hypertrophy. Mildly hypokinetic septum. No other obvious regional wall motion abnormalities. Normal left ventricular ejection fraction visually estimated at 65%. Abnormal relaxation filling pattern of the left ventricle for age (stage 1 diastolic dysfunction). Right Ventricle Normal right ventricular size and function. Right Atrium Normal right atrial size. Left Atrium Normal left atrial size. Mitral Valve Structurally normal mitral valve. No mitral regurgitation. Aortic Valve Aortic valve not well visualized. Mild aortic sclerosis. No aortic valve stenosis or regurgitation. Tricuspid Valve Structurally normal tricuspid valve. Trace tricuspid regurgitation. Mild pulmonary hypertension. Right ventricular systolic pressure estimated to be elevated at 43 mmHg. Pulmonic Valve Pulmonic valve not well visualized. Trace pulmonic regurgitation. Pericardium No pericardial effusion. Great Vessels Normal size aortic root. Normal size inferior vena cava. CONCLUSIONS Derek Crisostomo M.D. (Electronically Signed) Final Date: 14 March 2017 11:20 MEASUREMENTS (Male / Female) Normal Values 2D ECHO LV Diastolic Diameter PLAX 3.6 cm 4.2 - 5.9 / 3.9 - 5.3 cm LV Systolic Diameter PLAX 2.3 cm 2.1 - 4.0 cm LV Fractional Shortening PLAX 36.1 % 25 - 46 % LV Ejection Fraction 2D Teich 66.7 % IVS Diastolic Thickness 0.8 cm LVPW Diastolic Thickness 1.0 cm LV Relative Wall Thickness 0.5 LVOT Diameter 2.0 cm Aortic Root Diameter 2.4 cm LA Systolic Diameter LX 3.2 cm 3.0 - 4.0 / 2.7 - 3.8 cm Ascending Aorta Diameter 2.4 cm DOPPLER AV Peak Velocity 102.0 cm/s AV Peak Gradient 4.2 mmHg AV Mean Velocity 73.0 cm/s AV Mean Gradient 2.0 mmHg AV Velocity Time Integral 23.0 cm LVOT Peak Velocity 63.2 cm/s LVOT Peak Gradient 1.6 mmHg LVOT Mean Velocity 34.5 cm/s LVOT Mean Gradient 1.0 mmHg LVOT Velocity Time Integral 14.6 cm LVOT Stroke Volume 45.9 cm AV Area Cont Eq vti 2.0 cm AV Area Cont Eq pk 1.9 cm MV Peak Velocity 99.3 cm/s MV Peak Gradient 3.9 mmHg MV Mean Velocity 55.9 cm/s MV Mean Gradient 2.0 mmHg Mitral E Point Velocity 54.8 cm/s Mitral A Point Velocity 82.4 cm/s Mitral E to A Ratio 0.7 MV PHT Velocity 78.7 cm/s MV Deceleration Clare 254.0 cm/s MV Pressure Half Time 93.0 ms MV Area PHT 2.4 cm MV Deceleration Time 359.0 ms TR Peak Velocity 309.0 cm/s TR Peak Gradient 38.2 mmHg Right Atrial Pressure 5.0 mmHg Pulmonary Artery Systolic Pressu 43.2 mmHg Right Ventricular Systolic Press 43.2 mmHg PV Peak Velocity 88.9 cm/s PV Peak Gradient 3.2 mmHg PV Mean Velocity 63.1 cm/s PV Mean Gradient 1.5 mmHg PV Velocity Time Integral 20.2 cm LV E' Lateral Velocity 6.2 cm/s Mitral E to LV E' Lateral Ratio 8.8 LV E' Septal Velocity 6.5 cm/s Mitral E to LV E' Septal Ratio 8.4
--- NOTE | 2017-03-14 11:42 | ULTRASOUND REPORT ---
EXAMINATION: US ABDOMEN LIMITED CLINICAL INFORMATION: 71-year-old female with elevated LFTs.. COMPARISON: None TECHNIQUE: Real-time imaging of the right upper quadrant abdominal viscera. FINDINGS: PANCREAS: Pancreatic head and body are unremarkable. Pancreatic tail is obscured by overlying bowel gas. LIVER: The liver is normal in size and contour. It demonstrates diffusely increased echogenicity suggesting hepatic steatosis. No focal lesion or intrahepatic biliary duct dilatation. GALLBLADDER: Status post cholecystectomy. COMMON BILE DUCT: Normal in caliber measuring 0.8 cm in diameter. RIGHT KIDNEY: The right kidney appears atrophic measuring 7.4 cm. Cortical thinning is noted. No hydronephrosis or renal calculi. FREE FLUID: None. IMPRESSION: 1. Increased liver echogenicity suggesting hepatic steatosis. No intrahepatic biliary duct dilatation. 2. Status post cholecystectomy. 3. Atrophic right kidney.
[2017-03-14] MEDS ORDERED: PRAVASTATIN SOD80 M2 PO (15:55)
[2017-03-14] MEDS ORDERED: PLAVIX75 M1 PO (15:55)
[2017-03-14] MEDS ORDERED: TOPROL XL100 M1 PO (16:08)
[2017-03-14] MEDS ORDERED: PROTONIX40 M3 PO (16:11)
[2017-03-14 16:50] VITALS: BP 128/70
--- NOTE | 2017-03-14 16:54 | NUR ---
1630 - PATIENT ARRIVED TO FLOOR AT THIS TIME. VSS.
--- NOTE | 2017-03-14 17:08 | Event Note ---
Event Note Event Note: Patient was admitted for acute chest pain. ACS was ruled out with serial troponin and EKG. Patient was found to have transaminitis. It's not clear if patient was taken Lipitor or not. Records from her cold meat cook can be found in the chart. Patient daughter brought all the home medication. Home medication did not include any beta wes, ARACELI inhibitor, statin, or antiplatelets. All other home medication bottles was filled with pills(patient is not compliant) and most of them was . Before discharging the patient, discharging team must address why patient is not on aspirin, Plavix, and ARACELI inhibitor as she has a history of coronary artery disease and catheter X2. With stent placement. Before discharge her transaminitis must be addressed, statin must be held until transaminitis workup is done. Try to call primary care doctor to ask for drug medications list
--- NOTE | 2017-03-14 17:39 | NUR ---
THIS NURSES WAS GIVEN PATIENTS MEDICATIONS. 2 BOTTLES - 1 BOTTLE RANEXA, 1 BOTTLE METFORMIN BOTTLES SENT TO PHARMACY.
[2017-03-14 23:00] VITALS: BP 106/62
--- NOTE | 2017-03-14 23:28 | NUR ---
PT CURRENTLY REFUSING IV PLACEMENT. EXPLAINED THAT EVEN THOUGH WE ARE NOT INFUSING/USING THE IV AT THIS TIME, IT IS IMPORTANT TO HAVE. PT STILL REFUSING. DR. TROY AWARE.
[2017-03-15 07:43] VITALS: BP 122/74
[2017-03-15 09:15] VITALS: BP 122/74
[2017-03-15 09:22] LABS: ABSOLUTE BASOPHIL COUNT 0 /CUMM (0.0-0.2); ABSOLUTE EOSINOPHIL COUNT 0.1 /CUMM (0.0-0.7); ABSOLUTE LYMPH COUNT 2.5 /CUMM (1.2-3.4); ABSOLUTE MONOCYTE COUNT 0.4 /CUMM (0.10-0.60); BASOPHIL % 0.2 % (0.0-2.0); EOSINOPHIL % 2.1 % (0-5); GRANULOCYTE % 49.8 % (42.2-75.2); MEAN CORPUSCULAR HGB 30.8 PG (27.0-31.0); MEAN CORPUSCULAR HGB CONC 33.3 G/DL (33.0-37.0); MEAN CORPUSCULAR VOLUME 92.4 FL (81.0-99.0); MEAN PLATELET VOLUME 7.7 FL (7.4-10.4); PLATELET COUNT 289 /CUMM (130-400); RBC DISTRIBUTION WIDTH 17.1 % (11.5-14.5); RED BLOOD CELL CT 4.53 /CUMM (4.20-5.40); WHITE BLOOD CELL COUNT 6.1 /CUMM (4.8-10.8)
[2017-03-15 09:47] LABS: HEMATOCRIT 41.8 % (37-47)
--- NOTE | 2017-03-15 11:46 | PN- Housestaff ---
Subjective Follow-up For: -unstable angina -transaminitis -diabetes -hypertension Complaints: no complaints Tele-Events Since Last Visit: SR 77-86 OVERNIGHT WITH NO EVENTS Subjective: PATIENT EXAMINED AT BEDSIDE. NO COMPLAINTS. NO EVENTS OVERNIGHT. PATIENT'S CHEST PAIN IS BETTER AND SHE NOW RANKS IT 0/10 PAIN. PLANS TO SIGN OUT AMA UNLESS WE CAN GET THE TEXTILE DESIGNS SALES REPRESENTATIVE TO SEE HER TODAY RE: WHY SHE IS NOT ON ASA/ PLAVIX GIVEN HER CARDIAC/STENT HISTORY Review of Systems Constitutional: Denies: no symptoms, chills, diaphoresis, fever, malaise, weakness, unexplained weight loss. Cardiovascular: Denies: no symptoms, see HPI, chest pain, edema, orthopena, palpitations, peripheral edema, syncope. Respiratory: Denies: no symptoms. Gastrointestinal: Denies: abdominal pain, constipation, diarrhea, nausea, vomiting. Genitourinary: Denies: no symptoms. Musculoskeletal: Denies: no symptoms. Skin: Denies: no symptoms. Hematologic/Endocrine: Denies: no symptoms. Immunologic/Allergic: Denies: no symptoms. Objective Last 24 Hrs of Vital Signs/I&O Vital Signs Date Time Temp Pulse Resp B/P B/P Pulse O2 O2 Flow FiO2 Mean Ox Delivery Rate 03/15 0915 81 122/74 07/ 0743 97.9 81 20 122/74 95 Room Air 03/14 2300 97.8 78 20 106/62 96 Room Air 03/14 1650 98.5 91 20 128/70 95 Room Air Intake & Output 03/15 1600 07/ 0800 07/ 0000 Intake Total 240 480 Output Total Balance 240 480 Intake, Oral 240 480 Physical Exam General Appearance: Alert, Oriented X3, Cooperative, No Acute Distress Skin: No Rashes, No Breakdown, No Significant Lesion Skin Temp/Moisture Exam: Warm/Dry Sepsis Skin Exam (color): Normal for Ethnicity HEENT: Atraumatic, PERRLA, EOMI, Mucous Membr. moist/pink Neck: Supple, No JVD Cardiovascular: Regular Rate, Normal S1, Normal S2, No Murmurs, Gallops, Rubs Lungs: Clear to Auscultation, Normal Air Movement Abdomen: Normal Bowel Sounds, Soft, No Tenderness, No Hepatospenomegaly, No Masses Neurological: Normal Speech, Normal Tone Extremities: No Clubbing, No Cyanosis, No Edema, Normal Pulses, No Tenderness/ Swelling Vascular: Normal Pulses, Pulses Symmetrical Current Medications: Current Medications Sig/Melani Start time Last Medication Dose Route Stop Time Status Admin Acetaminophen 650 MG Q8P PRN 03/14 0430 AC PO Amlodipine Besylate 10 MG DAILY 03/15 1000 AC 03/15 PO 0915 Clopidogrel Bisulfate 75 MG DAILY 03/15 1000 AC 03/15 PO 0915 Heparin Sodium 25,000 UNIT Q24H 03/14 0145 DC 03/14 (Porcine) IV 0247 Sodium Chloride 500 ML Insulin Aspart 0 TIDAC 03/15 0800 AC SC Insulin Human Regular 0 Q6 03/14 0600 DC SC Oxycodone/ 1 TAB ONCE PRN 03/14 2245 AC 03/14 Acetaminophen PO 2307 Potassium Chloride 20 MEQ ONCE ONE 03/14 1100 DC 03/14 PO 03/14 1101 1119 Last 24 Hrs of Lab/Joseph Results Last 24 Hrs of Labs/Mics: Laboratory Tests 03/15/17 0810: Anion Gap 9, Estimated GFR > 60, Glucose 73, Calcium 9.9, Phosphorus 4.0, Magnesium 2.0, Total Bilirubin 0.5, AST 96 H, ALT 97 H, Albumin 3.9, CBC w Diff NO MAN DIFF REQ, RBC 4.53, MCV 92.4, MCH 30.8, RDW 17.1 H, MPV 7.7, Gran % 49.8, Lymphocytes % 41.2, Monocytes % 6.7, Eosinophils % 2.1, Basophils % 0.2, Absolute Granulocytes 3.0, Absolute Lymphocytes 2.5, Absolute Monocytes 0.4, Absolute Eosinophils 0.1, Absolute Basophils 0, PUBS MCHC 33.3, Hepatitis A IgM Ab Pending, Hep Bs Antigen Pending, Hep B Core IgM Ab Conf Pending, Hepatitis C Antibody Pending 03/14/17 1210: Troponin I < 0.01 Assessment/Plan Assessment: Ms. 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 In ED: Her troponins were negative Normal EKG unchanged from baseline (last visit to [facility] was 01/03/17) CXR clear BP 152/78 AST/ALT: 219/102 LDL: 62 CHOL: 132 Of note, she sees a bar tacker sewing machine in [place] and reports that she stopped plavix on her own in September and has not taken ASA because she hasnt wanted to pay for it. We have restarted her. Most recent cath was in November 2016 and showed her stents to be clear. She reports some recent RUQ pain (3 days ago) and was found to have elevated transaminases. She states that a doctor told her she may have liver damage due to her unspecified arthritis pills and lipitor which she has since stopped (last dose 2 weeks ago). Currently: Labs WNL, PTT 88 <-- 37 on admission, AST/ALT 96/97 Plan: Unstable angina: Patient is currently having 0/10 chest pain and no respiratory complaints. Given patient's significant cardiac history but lack of EKG and troponin changes we treated her as unstable angina. She got three nitro SL and morphine but pain returned so she was started on Nitro drip. * Patient now on plavix 75 mg daily, continue Toprol xl 100mg * Monitor W/ telemetry * Await cardiology reports as to why her plavix was stopped in september before discharging her * Consider Statin on discharge after evaluating her elevated LFTs which are trending down. Transaminitis: Previous LFTs within normal limits. AST/ALT trending down. Nonfocal abdominal exam. Unsure of etiology. Has been off lipitor for 2 weeks. Reports last RUQ pain 3 days ago. Abdominal echo suggestive of hepatic steatosis. History of cholecystectomy. * Have patient follow-up outsppatient before starting lipitor Diabetes: Chronic and stable, fingerstick 130 * Hold metformin 500 * Regular insulin sliding scale * Fingerstick Hypertension: On admission patient's blood pressure 150/78, now 122/74. She was given NG but is now only continued on her amlodipine. * If she continues to be hypertensive, consider cardioselective beta wes as it is a first line in ACS. * Continue amlodipine 10 mg at home daily Problem List: 1. Unstable angina Pain Ratin Pain Location: NA Pain Goal: Remain pain free Pain Plan: NTG Tomorrow's Labs & Rationales: LFTs IF SHE STAYS Consulting Request: Consulting Specialty: Cardiology Discharge Plan Discharge Disposition: home
--- NOTE | 2017-03-15 11:48 | PN- Cardiology ---
Subjective Subjective: The patient is feeling better. She has no further chest pain. She's had no arrhythmias. Her enzymes are negative 3. Liver function tests have improved. Her echo showed good left ventricular systolic function. The patient is eager to be discharged. Her medications have been restarted. It is unclear why she is not taking all of her medications at home. Objective Vital Signs and I&Os Vital Signs Date Time Temp Pulse Resp B/P B/P Pulse O2 O2 Flow FiO2 Mean Ox Delivery Rate 03/15 0915 81 122/74 03/15 0743 97.9 81 20 122/74 95 Room Air 03/14 2300 97.8 78 20 106/62 96 Room Air 03/14 1650 98.5 91 20 128/70 95 Room Air Intake & Output 03/15 1600 03/15 0800 03/15 0000 03/14 1600 03/14 0800 03/14 0000 Intake Total 240 240 480 646 65 Output Total Balance 240 240 480 646 65 Intake, IV 126 65 Intake, Oral 240 240 480 520 0 Number 0 Bowel Movements Patient 85 lb 2.99 oz 89 lb 15.99 oz Weight Weight Bed scale Reported by Patient Measurement Method Physical Exam: She is in no distress HEENT exam is normal Chest is clear Heart is regular rhythm no murmurs Extremities no edema Current Medications: Current Medications Sig/Melani Start time Last Medication Dose Route Stop Time Status Admin Acetaminophen 650 MG Q8P PRN 03/14 0430 AC PO Amlodipine Besylate 10 MG DAILY 03/15 1000 AC 03/15 PO 0915 Clopidogrel Bisulfate 75 MG DAILY 03/15 1000 AC 03/15 PO 0915 Heparin Sodium 25,000 UNIT Q24H 03/14 0145 DC 03/14 (Porcine) IV 0247 Sodium Chloride 500 ML Insulin Aspart 0 TIDAC 03/15 0800 AC SC Insulin Human Regular 0 Q6 03/14 0600 DC SC Oxycodone/ 1 TAB ONCE PRN 03/14 2245 AC 03/14 Acetaminophen PO 2307 Results Last 48 Hrs of Labs/Mics: Laboratory Tests 03/15/17 0810: Anion Gap 9, Estimated GFR > 60, Glucose 73, Calcium 9.9, Phosphorus 4.0, Magnesium 2.0, Total Bilirubin 0.5, AST 96 H, ALT 97 H, Albumin 3.9, CBC w Diff NO MAN DIFF REQ, RBC 4.53, MCV 92.4, MCH 30.8, RDW 17.1 H, MPV 7.7, Gran % 49.8, Lymphocytes % 41.2, Monocytes % 6.7, Eosinophils % 2.1, Basophils % 0.2, Absolute Granulocytes 3.0, Absolute Lymphocytes 2.5, Absolute Monocytes 0.4, Absolute Eosinophils 0.1, Absolute Basophils 0, PUBS MCHC 33.3, Hepatitis A IgM Ab Pending, Hep Bs Antigen NONREACTIVE, Hep B Core IgM Ab Conf Pending, Hepatitis C Antibody Pending 03/14/17 1210: Troponin I < 0.01 03/14/17 0905: Anion Gap 6, Estimated GFR > 60, BUN/Creatinine Ratio 17.1, Lactic Acid 0.9, Triglycerides 89, Cholesterol 132, LDL Cholesterol, Calc 62 L, HDL Cholesterol 53, Cholesterol/HDL Ratio 3, PT 11.7, INR 1.12, APTT 88 H, CBC w Diff NO MAN DIFF REQ, RBC 3.90 L, MCV 92.1, MCH 30.8, RDW 16.5 H, MPV 7.6, Gran % 39.1 L, Lymphocytes % 50.4, Monocytes % 7.5, Eosinophils % 2.8, Basophils % 0.2, Absolute Granulocytes 1.8, Absolute Lymphocytes 2.3, Absolute Monocytes 0.3, Absolute Eosinophils 0.1, Absolute Basophils 0, PUBS MCHC 33.5 03/14/17 0541: Troponin I < 0.01 03/14/17 0024: Anion Gap 10, Estimated GFR > 60, BUN/Creatinine Ratio 18.6, Glucose 93, Calcium 9.8, Magnesium 2.1, Total Bilirubin 0.4, AST 219 H, ALT 102 H, Alkaline Phosphatase 218 H, Troponin I < 0.01, Gko-X-Btolsotaotu Pept 53.8, Total Protein 6.5, Albumin 4.0, Globulin 2.5, Albumin/Globulin Ratio 1.6, TSH 7.280 H , Free T4 1.23, Total T3 1.60, PT 11.1, INR 1.06, APTT 37, CBC w Diff NO MAN DIFF REQ, RBC 4.23, MCV 91.6, MCH 30.4, RDW 16.6 H, MPV 7.5, Gran % 47.4, Lymphocytes % 43.0, Monocytes % 7.1, Eosinophils % 2.4, Basophils % 0.1, Absolute Granulocytes 2.8, Absolute Lymphocytes 2.5, Absolute Monocytes 0.4, Absolute Eosinophils 0.1, Absolute Basophils 0, PUBS MCHC 33.2 Recent Imaging Studies: Left Ventricle Normal size left ventricle. Borderline concentric left ventricular hypertrophy. Mildly hypokinetic septum. No other obvious regional wall motion abnormalities. Normal left ventricular ejection fraction visually estimated at 65%. Abnormal relaxation filling pattern of the left ventricle for age (stage 1 diastolic dysfunction). Assessment/Plan Assessment/Plan The patient has a negative workup for ischemia. She can be discharged at this time. We will reinstitute her cardiac medications and she does agree to take them. She will follow-up with her regular physicians regarding her elevated liver function tests and question of statins. Continue telemetry? No
--- NOTE | 2017-03-15 11:55 | Patient Discharge Instructions ---
Discharge Instructions General Discharge Information You were seen/treated for: unstable angina transaminitis Special Instructions: 1. Please f/u with your PCP within 1 week. We are holding statins for transaminitis. 2. Please f/u with your cradiologist Lizett Luque M.D within 1 week of discharge. 3. Please continue taking the Plavix Diet Recommended Diet: Diabetic Activity Full Activity/No Limits: Yes (as tolerated) Acute Coronary Syndrome Inclusion Criteria At DC or during hospital stay patient has or had the following: ACS DIAGNOSIS No Discharge Core Measures Meds if any: Prescribed or Continued at Discharge Meds if any: NOT Prescribed or Continued at Discharge Congestive Heart Failure Inclusion Criteria At DC or during hospital stay patient has or had the following: CHF DIAGNOSIS No Discharge Core Measures Meds if any: Prescribed or Continued at Discharge Meds if any: NOT Prescribed or Continued at Discharge Cerebrovascular accident Inclusion Criteria At DC or during hospital stay patient has or had the following: CVA/TIA Diagnosis No Discharge Core Measures Meds if any: Prescribed or Continued at Discharge Meds if any: NOT Prescribed or Continued at Discharge Venous thromboembolism Inclusion Criteria VTE Diagnosis No VTE Type NONE VTE Confirmed by (Test) NONE Discharge Core Measures - Per Current guidelines, there needs to be overlap - treatment for the first 5 days of Warfarin therapy. - If discharged on Warfarin prior to 5 days of - overlap therapy, the patient will need to be - assessed for post discharge needs including - *Post discharge parental anticoagulation - *Warfarin and/or parental anticoagulation education - *Follow up date to check INR post discharge At least 5 days overlap therapy as Inpatient No Meds if any: Prescribed or Continued at Discharge Note: Overlap Therapy is Warfarin and Anticoagulant Meds if any: NOT Prescribed or Continued at Discharge
[2017-03-15] MEDS ORDERED: NITROSTAT0.4 M1 SL (13:08)
--- NOTE | 2017-03-16 11:46 | Discharge Summary ---
Visit Information Visit Dates Admission Date: 03/14/17 Discharge Date: 03/15/17 Hospital Course Course Attending Physician: MELANIE PETERS,CALI Matute Primary Care Physician: ASAEL PETERS,IRA Street Consulting Request: Consulting Specialty: Cardiology Hospital Course: This is a 70-year-old female past medical history significant for MD 2 in 1992 and [address], asthma, hypertension, diabetes, who was BIBA for chief complaint of chest pain. Patient states that 6 hours prior to admission she felt left-sided moderate to severe chest pain, headache. She took one nitroglycerin tablet at home and stated that it helped her for about 20 -30 minutes. However, the pain returned and as she did not have any more nitroglycerin at home so she decided to come to ED. Ms. Najera has been seeing a immersion metal cleaner in [place] but states that she stopped taking her plavix in September for unspecified reasons. While she has never been admitted to [facility] she has been to our ED on 01/03/2017 for unstable angina. Serial troponins were negative and she was discharged to follow-up with immersion metal cleaner. She usually follows up in [facility]. Her most recent cath was at [facility] in November and showed her stents to be clear. In the ED, Ms. Najera was found to have negative troponins, a normal EKG, and a clear CXR. BP was found to be 152/78 and incidentally, AST/ALT were found to be 219/102. She states that she has been having some RUQ pain and that she has stopped her Lipitor 2 weeks ago. Plavix was restarted with her PTT rebounding to 88 from 37 on admission. AST/ALT decreased to 96/97 and all other labs were wnl the following day. Her echo showed good LV systolic function. Her blood pressure also decreased to 122/74 and she was continued on her home dose of amlodipine. She was advised to follow-up with her regular physician/ immersion metal cleaner regarding restarting statin. Allergies: Coded Allergies: Penicillins (RASH 01/03/17) Significant Procedures: echo: good left ventricular systolic function with no regional abnormalities Pertinent Lab Results: ED: AST/ALT: 219/102 LDL: 62 CHOL: 132 On discharge day: PTT 88 <-- 37 on admission, AST/ALT 96/97 Disposition Summary Disposition Principal Diagnosis: unstable angina Additional Diagnosis: transaminitis Discharge Disposition: home health services Discharge Instructions General Discharge Information Code Status: Full Code Patient's Diet: diabetic Patient's Activity: full activity Follow-Up Instructions/Appts: 1. Please f/u with your PCP within 1 week. We are holding statins for transaminitis. 2. Please f/u with your cradiologist Jimbo Luque M.D within 1 week of discharge. 3. Please continue taking the Plavix Medications at Discharge Discharge Medications: Stop taking the following medications: Prednisone (Prednisone) 5 MG TAB.DS.PK ORAL DAILY Pravastatin Sodium (Pravastatin Sodium) 80 MG TABLET ORAL DAILY Qty = 30 Continue taking these medications: Dicyclomine HCl (Dicyclomine HCl) 20 MG TABLET 1 Tablet ORAL Comments: NOT GIVEN IN HOSPITAL Mv,Min #10/FA/D3/Alip Acid/Lut (Strovite One Caplet) 1 MG-1,000 UNIT-15 MG-5 MG TABLET 1 Tablet ORAL DAILY Comments: NOT GIVEN IN HOSPITAL Metformin HCl (Metformin HCl ER) 500 MG TAB.ER.24 1 Tablet ORAL DAILY Comments: NOT GIVEN IN HOSPITAL Amlodipine Besylate (Amlodipine Besylate) 10 MG TABLET 1 Tablet ORAL DAILY Comments: Last Taken: 03/15/17 Time: 9:15 AM Nitroglycerin (Nitrostat) 0.4 MG TAB.SUBL 1 Tablet SUBLINGUAL As Directed as needed for CHEST PAIN Qty = 40 Instructions: 1st sign of attack; may repeat every 5 minutes until relief; if pain persists after 3 tablets in 15 minutes, prompt medical att Comments: Last Taken: 03/14/17 Time: 1 AM Clopidogrel Bisulfate (Plavix) 75 MG TABLET 1 Tablet ORAL DAILY Comments: Last Taken: 03/15/17 Time: 9:15 AM Metoprolol Succ XL (Toprol XL) 100 MG TAB.ER.24H 1 Tablet ORAL DAILY Comments: NOT GIVEN IN HOSPITAL Pantoprazole Sodium (Protonix) 40 MG TABLET.DR 1 Tablet ORAL DAILY Comments: NOT GIVEN IN HOSPITAL Start taking the following new medications: Nitroglycerin (Nitrostat) 0.4 MG TAB.SUBL 1 Tablet SUBLINGUAL NEEDED Qty = 10 No Refills Instructions: 1st sign of attack; may repeat every 5 minutes until relief; if pain persists after 3 tablets in 15 minutes, prompt medical att Copies To: ARMIN PETERS,JIMBO Attending MD Review Statement Documenting Attending: JACK PETERS,ENID Matute
== END 2017-03-15 13:15 | disposition home health service (06) | DRG 303 ==
LOC: ERH 23:57 → ERHI 03-14 02:34 → CRI 03-14 02:34 → ENRESERV 03-14 05:04 → CRI 03-14 05:45 → 1NO 03-14 16:24 → ENPENDDIS 03-15 12:01 → 1NO 03-15 13:15
PROVIDERS: Emergency Medicine; Internal Medicine; Student in an Organized Health Care Education/Training Program; ADMIT Internal Medicine Interventional Cardiology
DX: I25.110 Atherosclerotic heart disease of native coronary artery with unstable angina pectoris (principal); E11.9 Type 2 diabetes mellitus without complications; I10 Essential (primary) hypertension; F17.210 Nicotine dependence, cigarettes, uncomplicated; Z79.4 Long term (current) use of insulin; I25.2 Old myocardial infarction; Z95.5 Presence of coronary angioplasty implant and graft; J45.909 Unspecified asthma, uncomplicated; R74.0 Nonspecific elevation of levels of transaminase and lactic acid dehydrogenase [LDH]; Z79.02 Long term (current) use of antithrombotics/antiplatelets; Z79.84 Long term (current) use of oral hypoglycemic drugs; Z91.81 History of falling
CPT/HCPCS: 1NSP; 36415; 82436; 93005; 93010; 93306; 96374; 96375; 96376; 99291; J1644; J1815; J7060

== ENCOUNTER 2017-09-26 02:35 | Emergency (ER) | payer OTHER, MEDICARE ==
[~2017-09-26] VITALS: Ht 139.7 cm; Wt 48.1 kg
[~2017-09-26 02:35] MED LIST changes: +PERCOCET 5-3251 EACH PO; +PLAVIX75 M1 PO; +PRAVASTATIN SOD80 M2 PO; +PROTONIX40 M3 PO; +TOPROL XL100 M1 PO
[2017-09-26 03:01] LABS: ABSOLUTE BASOPHIL COUNT 0 /CUMM (0.0-0.2); ABSOLUTE EOSINOPHIL COUNT 0.2 /CUMM (0.0-0.7); ABSOLUTE GRANULOCYTE CT 2.9 /CUMM (1.4-6.5); ABSOLUTE LYMPH COUNT 3.4 /CUMM (1.2-3.4); ABSOLUTE MONOCYTE COUNT 0.7 /CUMM (0.10-0.60); BASOPHIL % 0.4 % (0.0-2.0); EOSINOPHIL % 2.5 % (0-5); GRANULOCYTE % 40.7 % (42.2-75.2); HEMATOCRIT 34.1 % (37-47); MEAN CORPUSCULAR HGB 31.3 PG (27.0-31.0); MEAN CORPUSCULAR HGB CONC 32.6 G/DL (33.0-37.0); MEAN PLATELET VOLUME 7.7 FL (7.4-10.4); PLATELET COUNT 263 /CUMM (130-400); RBC DISTRIBUTION WIDTH 14.2 % (11.5-14.5); RED BLOOD CELL CT 3.56 /CUMM (4.20-5.40); WHITE BLOOD CELL COUNT 7.2 /CUMM (4.8-10.8)
--- NOTE | 2017-09-26 03:17 | ED CARDIAC/CP/PALPITATIONS ---
History of Present Illness General Chief Complaint: Chest Pain Stated Complaint: BIBA CP Source: patient, family, old records, EMS Exam Limitations: no limitations Vital Signs & Intake/Output Vital Signs & Intake/Output Vital Signs Date Time Temp Pulse Resp B/P B/P Pulse O2 O2 Flow FiO2 Mean Ox Delivery Rate 09/26 06 97.4 60 18 150/82 99 Room Air 09/26 0437 62 18 136/88 100 Room Air 09/26 0254 100 Room Air 09/26 0240 98.2 61 18 130/64 99 Room Air Allergies Coded Allergies: Penicillins (RASH 09/26/17) Reconcile Medications Amlodipine Besylate 10 MG TABLET 1 TAB PO DAILY HTN (Reported) Clopidogrel Bisulfate (Plavix) 75 MG TABLET 1 TAB PO DAILY antiplatelet ( Reported) Dicyclomine HCl 20 MG TABLET 1 TAB PO (Reported) Metformin HCl (Metformin HCl ER) 500 MG TAB.ER.24 1 TAB PO DAILY DM (Reported ) Metoprolol Succ XL (Toprol XL) 100 MG TAB.ER.24H 1 TAB PO DAILY heart health (Reported) Mv,Min #10/FA/D3/Alip Acid/Lut (Strovite One Caplet) 1 MG-1,000 UNIT-15 MG-5 MG TABLET 1 TAB PO DAILY SUPPLEMENT (Reported) Nitroglycerin (Nitrostat) 0.4 MG TAB.SUBL 1 TAB SL AD PRN CHEST PAIN 1st sign of attack; may repeat every 5 minutes until relief; if pain persists after 3 tablets in 15 minutes, prompt medical att Oxycodone HCl/Acetaminophen (Percocet 5-325 MG Tablet) 5 MG-325 MG TABLET 1 TAB PO BID PRN BREAKTHROUGH PAIN Pantoprazole Sodium (Protonix) 40 MG TABLET.DR 1 TAB PO DAILY acid reflux ( Reported) Triage Note: TRIAGE: BIBA W/ C/O L BREAST/CP AT REST SINCE 11PM TOOK ASA W/ NITRO AT HOME W/ RELIEF, REPORTS "GOT A LITTLE DIAPHORETIC AT ONE POINT." NSR BY EMS, 2 SPRAYS SL NITRO GIVEN ON ROUTE BY EMS, PAIN DEC TO 3/10 FROM 06/24 THOUGH PATIENT REPORTS CURRENT PAIN 05/25. PREHOSP IV EST #18 LAC. FINGERSTICK: 80. Triage Nurses Notes Reviewed? yes Onset: Evening Duration: hour(s):, constant, continues in ED Timing: recent history Quality/Severity: moderate, severe, aching Location: L sided Radiation: no radiation Activities at Onset: none Prior Chest Pain/Card Workup: angina, cardiac cath, echocardiography, heart attack Nitro Today/Relief: 0.4 mg x 1, 0.4 mg x 2, provided by EMS, provided at home, no relief Aspirin Today: provided by EMS Associated Symptoms: diaphoresis, shortness of breath LMP (ages 10-50): post menopausal : No Patient currently breastfeeds: No HPI: 9 hours prior to admission patient complains of left sided chest pain constant throbbing nonradiating moderate in severity with no relief from sublingual nitroglycerin. She tried breathing treatment with little relief. There was some diaphoresis noted. En route to the hospital she received 2 baby aspirin and 2 sublingual nitroglycerin with no improvement in pain. She denies fever chills nausea vomiting diarrhea shortness of breath headache dysuria rash bleeding. Past History Travel History Traveled to [place] past 21 day No Medical History Any Pertinent Medical History? 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 No Review of Systems Review of Systems Constitutional: Reports: see HPI, diaphoresis. EENTM: Reports: no symptoms. Respiratory: Reports: see HPI. Cardiovascular: Reports: see HPI, chest pain. GI: Reports: no symptoms. Genitourinary: Reports: no symptoms. Musculoskeletal: Reports: no symptoms. Skin: Reports: no symptoms. Neurological/Psychological: Reports: no symptoms. Hematologic/Endocrine: Reports: no symptoms. Immunologic/Allergic: Reports: no symptoms. All Other Systems: Reviewed and Negative Physical Exam Physical Exam General Appearance: well developed/nourished, alert, awake, anxious, mild distress Head: atraumatic, normal appearance Eyes: Bilateral: normal appearance, PERRL, EOMI. Ears, Nose, Throat: normal pharynx, normal ENT inspection, hearing grossly normal Neck: normal inspection, supple, full range of motion, no midline tenderness Respiratory: normal breath sounds, no respiratory distress, quiet respiration, lungs clear Cardiovascular: regular rate/rhythm, normal peripheral pulses, norml femoral pulses equa Peripheral Pulses: 4+ carotid (R), 4+ carotid (L) Gastrointestinal: normal bowel sounds, soft, non-tender, no organomegaly Back: normal inspection, normal range of motion Extremities: normal inspection, normal capillary refill, normal range of motion, no edema Neurologic/Psych: no motor/sensory deficits, awake, alert, oriented x 3, normal gait, normal mood/affect, 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 Skin: intact, normal color, warm/dry Lymphatic: no anterior cervical mechelle Core Measures ACS in differential dx? Yes CVA/TIA Diagnosis No Sepsis Present: No Sepsis Focused Exam Completed? No Progress Differential Diagnosis: AMI, costochondritis, hyperkalemia, hypovolemia, pneumonia Plan of Care: Orders Procedure Date/time Status TROPONIN LEVEL 09/26 0550 Complete TROPONIN LEVEL 09/26 0251 Complete MAGNESIUM 09/26 0251 Complete COMPREHENSIVE METABOLIC PANEL 09/26 0251 Complete CBC WITHOUT DIFFERENTIAL 09/26 250 Complete EKG 09/26 0239 Active Laboratory Tests 09/26/17 0601: Troponin I 0.04 09/26/17 0251: Anion Gap 11, Estimated GFR > 60, BUN/Creatinine Ratio 26.3 H, Glucose 80, Calcium 9.3, Magnesium 2.1, Total Bilirubin 0.3, AST 26, ALT 32, Alkaline Phosphatase 143 H, Troponin I 0.04, Total Protein 6.1 L, Albumin 3.5, Globulin 2.6, Albumin/Globulin Ratio 1.3, CBC w Diff NO MAN DIFF REQ, RBC 3.56 L, MCV 96.0, MCH 31.3 H, RDW 14.2, MPV 7.7, Gran % 40.7 L, Lymphocytes % 47.2, Monocytes % 9.2, Eosinophils % 2.5, Basophils % 0.4, Absolute Granulocytes 2.9, Absolute Lymphocytes 3.4, Absolute Monocytes 0.7 H, Absolute Eosinophils 0.2, Absolute Basophils 0, PUBS MCHC 32.6 L Diagnostic Imaging: Viewed by Me: Radiology Read. Discussed w/RAD: Radiology Read. CXR Impression: no acute abnormality, no infiltrates Initial ED EKG: normal axis, normal intervals, normal p-waves, normal QRS complex, normal sinus rhythm, no ST T wave changes Prior EKG: unchanged Rhythm Strip: normal sinus rhythm Departure Departure Time of Disposition: 640 Disposition: HOME OR SELF CARE Condition: Stable Clinical Impression Primary Impression: Chest pain syndrome Referrals: Patient Has No Primary Care Dr (PCP/Family) Additional Instructions: Tylenol or motrin for pain Departure Forms: Customer Survey General Discharge Information Critical Care Note Critical Care Note Critical Care Time: non-applicable
--- NOTE | 2017-09-26 03:58 | RADIOLOGY REPORT ---
EXAMINATION: XR PORTABLE CHEST CLINICAL INFORMATION: Left-sided chest pain COMPARISON: 03/14/2017 TECHNIQUE: Portable frontal view of the chest was obtained. FINDINGS: Cervical fusion hardware noted. Reverse right total shoulder arthroplasty. Cardiac leads overlie the chest. The lungs are well expanded. There is no focal consolidation, edema, or effusion. No pneumothorax. The cardiomediastinal silhouette is unchanged with a tortuous and calcified aorta. No acute osseous abnormality. IMPRESSION: No acute pulmonary finding.
[2017-09-26 06:04] VITALS: BP 150/82
== END 2017-09-26 06:54 ==
LOC: ERH 02:35
PROVIDERS: Emergency Medicine
DX: R07.9 Chest pain, unspecified (principal)
CPT/HCPCS: 71045; 93005; 93010; 96374; J1885